=== PATIENT | male | born 1955 | race Two or more races ===

== ENCOUNTER 2017-04-04 13:00 | Emergency (ER) | payer MEDICARE, OTHER ==
[~2017-04-04] VITALS: Ht 172.7 cm; Wt 95.5 kg
[~2017-04-04 13:00] MED LIST: ASPI-1213 PO; BENZ0.5T6 PO; BISA10S PR; CLOZ100 PO; DIVA500T35 PO; DSS100 PO; FAMO20TA8 PO; HALOD100I IM; METO-408 PO; NIFE60TA81 PO; RISP4TAB16 PO
[2017-04-04] MEDS ORDERED: NIFE60TA71 PO (13:41)
[2017-04-04] MEDS ORDERED: FLUT1AER IH (13:41)
[2017-04-04] MEDS ORDERED: CLON.3 PO (13:41)
[2017-04-04] MEDS ORDERED: CARV25 PO (13:41)
[2017-04-04] MEDS ORDERED: LEVO50 PO (13:41)
[2017-04-04] MEDS ORDERED: GABA-531 PO (13:41)
[2017-04-04] MEDS ORDERED: HYDR-309 PO (13:41)
[2017-04-04] MEDS ORDERED: UMEC62.5 IH (13:41)
[2017-04-04] MEDS ORDERED: ACETAMINOPHEN 500 MG TABLET PO ONE (14:15)
[2017-04-04 15:33] LABS: BASOPHILS % (AUTO) 0.2 % (0.0-2.0); EOSINOPHILS % (AUTO) 0.3 % (1.0-6.0); HEMOGLOBIN 10.3 g/dL (13.5-17.5); LYMPHOCYTES # (AUTO) 1.1 K/uL (1.0-4.8); LYMPHOCYTES % (AUTO) 11.6 % (22.0-44.0); MEAN CORPUSCULAR HEMOGLOBIN 34.6 pg (26.0-34.0); MEAN CORPUSCULAR HGB CONC 34.3 G/dL (31.0-37.0); MEAN CORPUSCULAR VOLUME 101 fL (80-100); MONOCYTES # (AUTO) 0.6 K/uL (0.1-1.0); MONOCYTES % (AUTO) 6.6 % (2.0-9.0); NEUTROPHILS # (AUTO) 7.6 K/uL (1.8-7.7); NEUTROPHILS % (AUTO) 81.3 % (40.0-70.0); PLATELET COUNT (AUTO) 216 K/uL (150-450); RED BLOOD CELL COUNT(AUTO) 2.97 MIL/uL (4.50-5.90); RED CELL DISTRIBUTION WIDTH 14.9 % (11.5-14.5)
[2017-04-04 15:38] LABS: ANION GAP 16 mmol/L (8-16); CALCIUM, TOTAL 6.1 mg/dL (8.8-10.5); CARBON DIOXIDE 16 mmol/L (22-29); CHLORIDE 106 mmol/L (98-107); GLOMERULAR FILTR. RATE CALC 15 mL/min (>60); GLUCOSE,RANDOM 130 mg/dL (70-110); POTASSIUM 3.7 mmol/L (3.5-5.1); SODIUM SERUM 138 mmol/L (136-145); UREA NITROGEN, BLOOD 48 mg/dL (7-18)
[2017-04-04 15:44] LABS: ALANINE AMINOTRANSFERASE 15 U/L (12-78); ALBUMIN 1.9 g/dL (3.4-5.0); ALKALINE PHOSPHATASE 83 U/L (46-116); ASPARTATE AMINOTRANSFERASE 12 U/L (15-37); BILIRUBIN,TOTAL 0.2 mg/dL (0.1-1.0); TOTAL PROTEIN, SERUM 4.9 g/dL (6.4-8.2)
[2017-04-04 15:57] LABS: VALPROIC ACID 11 mcg/mL (50-100)
[2017-04-04] MEDS ORDERED: LORazepam 2 MG TABLET PO ONE (16:00)
[2017-04-04] MEDS ORDERED: HALOPERIDOL 5 MG TABLET PO ONE (16:00)
[2017-04-04 17:23] VITALS: BP 144/78
== END 2017-04-04 18:16 | disposition home or self-care (01) ==
LOC: EMS 13:02
DX: R45.1 Restlessness and agitation (principal); N28.9 Disorder of kidney and ureter, unspecified; R44.0 Auditory hallucinations; F91.1 Conduct disorder, childhood-onset type; I10 Essential (primary) hypertension; E03.9 Hypothyroidism, unspecified; F17.210 Nicotine dependence, cigarettes, uncomplicated; Z91.14 Patient's other noncompliance with medication regimen
CPT/HCPCS: 36415; 80053; 80164; 85025; 99284; G0480

== ENCOUNTER 2017-11-24 12:32 | Inpatient (IN) | payer MEDICARE, OTHER ==
[~2017-11-24] VITALS: Ht 180.3 cm; Wt 98.0 kg
[~2017-11-24 12:32] MED LIST changes: -ASPI-1213 PO; +BENZ0.5T44 PO; -BENZ0.5T6 PO; +CARV25 PO; +CLON.3 PO; +DIVA-54 PO; -DIVA500T35 PO; -FAMO20TA8 PO; +FLUT1AER IH; +GABA-531 PO; +HYDR-309 PO; +LEVO50 PO; -METO-408 PO; +NIFE60TA71 PO; -NIFE60TA81 PO; +UMEC62.5 IH
[2017-11-24 13:43] LABS: BASOPHILS % (AUTO) 0.9 % (0.0-2.0); EOSINOPHILS % (AUTO) 0.5 % (1.0-6.0); HEMATOCRIT 23.6 % (41-53); HEMOGLOBIN 7.8 g/dL (13.5-17.5); LYMPHOCYTES # (AUTO) 0.4 K/uL (1.0-4.8); MEAN CORPUSCULAR HEMOGLOBIN 31.7 pg (26.0-34.0); MEAN CORPUSCULAR HGB CONC 33.1 G/dL (31.0-37.0); MEAN CORPUSCULAR VOLUME 96 fL (80-100); MONOCYTES # (AUTO) 0.3 K/uL (0.1-1.0); MONOCYTES % (AUTO) 3.3 % (2.0-9.0); NEUTROPHILS # (AUTO) 7.9 K/uL (1.8-7.7); PLATELET COUNT (AUTO) 143 K/uL (150-450); RED BLOOD CELL COUNT(AUTO) 2.46 MIL/uL (4.50-5.90); RED CELL DISTRIBUTION WIDTH 19.1 % (11.5-14.5)
[2017-11-24 13:47] LABS: NEUTROPHILS % (AUTO) 90.3 % (40.0-70.0)
[2017-11-24 13:51] LABS: CREATININE 5.69 mg/dL (0.60-1.30); POTASSIUM 4.7 mmol/L (3.5-5.1)
[2017-11-24 13:55] LABS: PROTHROMBIN TIME 10.5 SEC (9.4-11.6)
[2017-11-24 14:16] LABS: ALBUMIN 2.2 g/dL (3.4-5.0); BILIRUBIN,TOTAL 0.3 mg/dL (0.1-1.0); CKMB RELATIVE INDEX 2.4 % (0.0-4.0); CREATINE KINASE MB 5.4 ng/mL (0-5); TOTAL PROTEIN, SERUM 5.4 g/dL (6.4-8.2)
[2017-11-24 14:24] LABS: CALCIUM, TOTAL 5.7 mg/dL (8.8-10.5)
[2017-11-24] MEDS ORDERED: CALCIUM GLUCONATE 0.465 MEQ/ML 10 ML VIAL ONE (14:28)
[2017-11-24 14:43] LABS: APPEARANCE,URINE CLEAR (CLEAR); BILIRUBIN,URINE NEGATIVE (NEGATIVE); GLUCOSE, URINE (UA) NEGATIVE (NEGATIVE); KETONES,URINE NEGATIVE (NEGATIVE); LEUKOCYTE ESTERASE ,URINE NEGATIVE (NEGATIVE); NITRATE,URINE NEGATIVE (NEGATIVE); OCCULT BLOOD,URINE TRACE (NEGATIVE); PH,URINE 5.5 (5.0-8.0); PROTEIN,URINE SEE CONFIRM (NEGATIVE); UROBILINOGEN,URINE 0.2 mg/dL (<=1.0)
[2017-11-24] MEDS ORDERED: CALCIUM GLUCONATE 100 MG/ML 10 ML IVP ONE ×2 (14:49→15:00)
[2017-11-24 14:51] LABS: BACTERIA,URINE Rare /HPF (None Seen); SQUAMOUS EPITHELIAL CELL,UR Few /LPF (None Seen); SULFOSALICYLIC ACID,URINE 2+ (Negative); WBC,URINE 0-2 /HPF (0-5)
[2017-11-24] MEDS: BUMETANIDE 0.25 MG/ML 4 ML VIAL IVP SCH ×2 (17:00→23:01)
[2017-11-24] MEDS ORDERED: HYDROCODONE/ACETAMINOPHEN 5-325 MG TABLET PO ONE (17:15)
[2017-11-24 20:00] VITALS: BP 177/100
[2017-11-24] MEDS ORDERED: NIFEdipine 60 MG ER TABLET PO ONE (21:00)
[2017-11-24] MEDS ORDERED: DOCUSATE SODIUM 100 MG CAPSULE PO PRN (22:45)
[2017-11-24] MEDS ORDERED: BISACODYL 10 MG RECTAL RECTAL SUPPOSITORY PR PRN (22:45)
[2017-11-25] VITALS (7 sets, daily range): BP systolic 118–184; BP diastolic 59–94
[2017-11-25] MEDS ORDERED: FLUTICASONE/VILANTEROL 100-25 MCG/INH INHALER [14] IH SCH ×2 (01:18→09:00)
[2017-11-25] MEDS: FLUTICASONE/VILANTEROL 100-25 MCG/INH INHALER [14] IH SCH (01:26)
[2017-11-25 05:28] LABS: BASOPHILS % (AUTO) 0.4 % (0.0-2.0); HEMATOCRIT 22.4 % (41-53); HEMOGLOBIN 7.5 g/dL (13.5-17.5); LYMPHOCYTES # (AUTO) 0.8 K/uL (1.0-4.8); MEAN CORPUSCULAR HGB CONC 33.6 G/dL (31.0-37.0); MEAN CORPUSCULAR VOLUME 95 fL (80-100); MONOCYTES # (AUTO) 0.8 K/uL (0.1-1.0); MONOCYTES % (AUTO) 8.5 % (2.0-9.0); NEUTROPHILS # (AUTO) 7.5 K/uL (1.8-7.7); NEUTROPHILS % (AUTO) 81.1 % (40.0-70.0); PLATELET COUNT (AUTO) 140 K/uL (150-450); RED BLOOD CELL COUNT(AUTO) 2.35 MIL/uL (4.50-5.90); RED CELL DISTRIBUTION WIDTH 18.7 % (11.5-14.5)
[2017-11-25 05:52] LABS: BILIRUBIN,TOTAL 0.3 mg/dL (0.1-1.0); CREATININE 5.77 mg/dL (0.60-1.30); MAGNESIUM 1.6 mg/dL (1.80-2.40); PHOSPHORUS 8.6 mg/dL (2.5-4.9); THYROID STIMULATING HORMONE 9.28 uIU/mL (0.36-3.74)
[2017-11-25] MEDS ORDERED: LEVOTHYROXINE SODIUM 50 MCG TABLET PO SCH (06:30)
[2017-11-25 06:37] LABS: % IRON SATURATION 17.3 % (30-44)
[2017-11-25] MEDS: GABAPENTIN 300 MG CAPSULE PO SCH ×3 (08:08→21:05)
[2017-11-25] MEDS: CARVEDILOL 25 MG TABLET PO SCH (08:08)
[2017-11-25] MEDS: BUMETANIDE 0.25 MG/ML 4 ML VIAL IVP SCH ×3 (08:08→23:44)
[2017-11-25] MEDS: EPOETIN ALFA 10,000 UNITS/ML VIAL SQ SCH (08:09)
[2017-11-25] MEDS: NIFEdipine 60 MG ER TABLET PO SCH ×2 (08:09→21:05)
[2017-11-25] MEDS: CALCIUM ACETATE 667 MG CAPSULE PO SCH ×2 (12:30→18:18)
[2017-11-25] MEDS: CHOLECALCIFEROL (VIT D3) 1,000 UNITS TABLET PO SCH (17:05)
[2017-11-25] MEDS ORDERED: SODIUM CHLORIDE 0.9% 100 ML ONE (17:08)
[2017-11-25] MEDS: SOD FERRIC GLUC COMPLX/SUCROSE 125 MG in SODIUM CHLORIDE 0.9% 100 ML IV SCH (18:17)
[2017-11-25] MEDS: SODIUM BICARBONATE 650 MG TABLET PO SCH (18:18)
[2017-11-25] MEDS: HYDROCODONE/ACETAMINOPHEN 5-325 MG TABLET PO PRN (18:38)
[2017-11-25] MEDS: IPRATROPIUM BROMIDE 0.5 MG/2.5 ML NEB SOLUTION NEB PRN (18:58)
[2017-11-25] MEDS: ALBUTEROL SULFATE 2.5 MG/0.5 ML NEB SOLUTION NEB PRN (18:58)
[2017-11-25] MEDS: BENZTROPINE MESYLATE 0.5 MG TABLET PO SCH (21:05)
[2017-11-25] MEDS: CloZAPine 100 MG TABLET PO SCH (21:05)
[2017-11-25 21:17] LABS: CREATININE,URINE 30.1 mg/dL (30.0-125.0)
[2017-11-25 21:18] LABS: CREATININE,SERUM FOR CRCL 5.77 mg/dL (0.60-1.30)
[2017-11-26] VITALS (8 sets, daily range): BP systolic 113–137; BP diastolic 59–74
[2017-11-26 05:22] LABS: IGM (IMMUNOFIXATION) 42 mg/dL (20-172)
[2017-11-26 06:22] LABS: CREATININE 6.11 mg/dL (0.60-1.30); MAGNESIUM 1.6 mg/dL (1.80-2.40); POTASSIUM 4.2 mmol/L (3.5-5.1)
[2017-11-26] MEDS: LEVOTHYROXINE SODIUM 75 MCG TABLET PO SCH (06:30)
[2017-11-26 06:49] LABS: PHOSPHORUS 9.4 mg/dL (2.5-4.9)
[2017-11-26 06:50] LABS: CALCIUM, TOTAL 5.8 mg/dL (8.8-10.5)
[2017-11-26 07:15] LABS: BASOPHILS % (AUTO) 0.5 % (0.0-2.0); EOSINOPHILS % (AUTO) 2.1 % (1.0-6.0); LYMPHOCYTES # (AUTO) 0.9 K/uL (1.0-4.8); LYMPHOCYTES % (AUTO) 13.1 % (22.0-44.0); MEAN CORPUSCULAR HEMOGLOBIN 31.6 pg (26.0-34.0); MEAN CORPUSCULAR HGB CONC 33.1 G/dL (31.0-37.0); MEAN CORPUSCULAR VOLUME 95 fL (80-100); MONOCYTES # (AUTO) 0.8 K/uL (0.1-1.0); MONOCYTES % (AUTO) 10.8 % (2.0-9.0); NEUTROPHILS # (AUTO) 5.3 K/uL (1.8-7.7); NEUTROPHILS % (AUTO) 73.5 % (40.0-70.0); PLATELET COUNT (AUTO) 120 K/uL (150-450); RED CELL DISTRIBUTION WIDTH 18.7 % (11.5-14.5)
[2017-11-26] MEDS ORDERED: CALCIUM GLUCONATE 100 MG/ML 10 ML IVP ONE ×3 (07:15→13:15)
[2017-11-26 07:26] LABS: HEMOGLOBIN 6.6 g/dL (13.5-17.5)
[2017-11-26] MEDS: CALCIUM ACETATE 667 MG CAPSULE PO SCH ×3 (08:00→17:32)
[2017-11-26] MEDS: CHOLECALCIFEROL (VIT D3) 1,000 UNITS TABLET PO SCH (09:00)
[2017-11-26] MEDS: NIFEdipine 60 MG ER TABLET PO SCH ×2 (09:00→20:22)
[2017-11-26] MEDS: CARVEDILOL 25 MG TABLET PO SCH (09:00)
[2017-11-26] MEDS: BENZTROPINE MESYLATE 0.5 MG TABLET PO SCH ×2 (09:00→20:23)
[2017-11-26] MEDS: GABAPENTIN 300 MG CAPSULE PO SCH ×3 (09:00→20:22)
[2017-11-26] MEDS: SODIUM BICARBONATE 650 MG TABLET PO SCH (09:00)
[2017-11-26] MEDS: FLUTICASONE/VILANTEROL 100-25 MCG/INH INHALER [14] IH SCH (09:00)
[2017-11-26] MEDS: BUMETANIDE 0.25 MG/ML 4 ML VIAL IVP SCH ×2 (09:27→17:32)
[2017-11-26 12:12] LABS: ABG A-A DIFF O2 591.2 mmHg (10-20.0); ABG BASE EXCESS -13.5 mmol/L (-2.0-3.0); ABG CARBOXYHEMOGLOBIN 0.3 % (0.0-1.5); ABG HCO3 14.3 mmol/L (22.0-26.0); ABG METHEMOGLOBIN 0.3 % (0.0-1.5); ABG OXYGEN CONTENT 9.9 mL/dL (15.0-23.0); ABG OXYGEN SATURATION 89.9 % (95.0-98.0); ABG OXYHEMOGLOBIN 89.4 % (94.0-100.0); ABG PCO2 42 mmHg (35-45); PO2, ARTERIAL BG 80.2 mmHg (79.0-87.0); SOURCE, BLOOD GAS ARTERIAL; TEMPERATURE, FAHRENHEIT, BG 98.6 FAHREN (96.0-98.6)
[2017-11-26 12:13] LABS: ABG PH 7.173 (7.35-7.450); ABG TOTAL HEMOGLOBIN 7.8 G/dL (12.0-18.0); O2 DEVICE,BLOOD GAS VENTILATOR (ROOM AIR); SITE, BLOOD GAS RT RADIAL; VT, ABG 550 ml
[2017-11-26 12:14] LABS: PEEP,BG 5 cm H2O
[2017-11-26] MEDS ORDERED: PROPOFOL 1000 MG/ISO-OSM 100 ML IV ONE (13:24)
[2017-11-26] MEDS ORDERED: HEPARIN SODIUM,PORCINE 1,000 UNITS/ML VIAL ONE (14:10)
[2017-11-26] MEDS ORDERED: HEPARIN SODIUM,PORCINE 1,000 UNITS/ML VIAL IVP PRN ×2 (14:15→14:30)
[2017-11-26] MEDS ORDERED: SODIUM CHLORIDE 0.9% 250 ML IV ONE ×2 (15:03→18:12)
[2017-11-26 15:29] LABS: EOSINOPHILS % (AUTO) 0.8 % (1.0-6.0); LYMPHOCYTES # (AUTO) 0.5 K/uL (1.0-4.8); MONOCYTES # (AUTO) 0.3 K/uL (0.1-1.0); NEUTROPHILS # (AUTO) 2.9 K/uL (1.8-7.7)
[2017-11-26 15:43] LABS: CALCIUM, TOTAL 6.4 mg/dL (8.8-10.5); CREATININE 5.52 mg/dL (0.60-1.30); POTASSIUM 3.5 mmol/L (3.5-5.1)
[2017-11-26] MEDS ORDERED: ALBUMIN HUMAN 25%-12.5GM/50ML IV BOTTLE IV ONE (15:45)
[2017-11-26] MEDS ORDERED: HEPARIN SODIUM,PORCINE 1,000 UNITS/ML VIAL IVP ONE ×2 (15:45)
[2017-11-26 15:49] LABS: ALBUMIN 1.6 g/dL (3.4-5.0); BILIRUBIN,TOTAL 0.2 mg/dL (0.1-1.0); TOTAL PROTEIN, SERUM 4.1 g/dL (6.4-8.2)
[2017-11-26 16:02] LABS: BASOPHILS % (AUTO) 0.6 % (0.0-2.0); LYMPHOCYTES % (AUTO) 14.3 % (22.0-44.0); MEAN CORPUSCULAR HEMOGLOBIN 31.5 pg (26.0-34.0); MEAN CORPUSCULAR HGB CONC 33.2 G/dL (31.0-37.0); MEAN CORPUSCULAR VOLUME 95 fL (80-100); MONOCYTES % (AUTO) 6.7 % (2.0-9.0); NEUTROPHILS % (AUTO) 77.6 % (40.0-70.0); PLATELET COUNT (AUTO) 106 K/uL (150-450); RED BLOOD CELL COUNT(AUTO) 2.02 MIL/uL (4.50-5.90); RED CELL DISTRIBUTION WIDTH 18.4 % (11.5-14.5)
[2017-11-26 16:07] LABS: HEMATOCRIT 19.1 % (41-53); HEMOGLOBIN 6.4 g/dL (13.5-17.5)
[2017-11-26] MEDS: PROPOFOL 1000 MG/ISO-OSM 100 ML IV PRN ×2 (16:41→20:22)
[2017-11-26] MEDS: SOD FERRIC GLUC COMPLX/SUCROSE 125 MG in SODIUM CHLORIDE 0.9% 100 ML IV SCH (18:16)
[2017-11-26 18:50] LABS: CREATINE KINASE, TOTAL 101 U/L (39-308)
[2017-11-26] MEDS: CloZAPine 100 MG TABLET PO SCH (20:22)
[2017-11-26] MEDS: CloNIDine HCL 0.1 MG TABLET PO PRN (20:22)
[2017-11-26 21:03] LABS: ABG A-A DIFF O2 604.6 mmHg (10-20.0); ABG BASE EXCESS -4.4 mmol/L (-2.0-3.0); ABG CARBOXYHEMOGLOBIN 0.1 % (0.0-1.5); ABG METHEMOGLOBIN 0.3 % (0.0-1.5); ABG OXYGEN CONTENT 12.4 mL/dL (15.0-23.0); ABG OXYGEN SATURATION 90.9 % (95.0-98.0); ABG OXYHEMOGLOBIN 90.5 % (94.0-100.0); ABG PCO2 40 mmHg (35-45); ABG PH 7.346 (7.35-7.450); ABG TOTAL HEMOGLOBIN 9.7 G/dL (12.0-18.0); PO2, ARTERIAL BG 68.6 mmHg (79.0-87.0); SOURCE, BLOOD GAS ARTERIAL; TEMPERATURE, FAHRENHEIT, BG 98.6 FAHREN (96.0-98.6)
[2017-11-26 21:05] LABS: O2 DEVICE,BLOOD GAS VENTILATOR (ROOM AIR); PEEP,BG 5 cm H2O; SITE, BLOOD GAS RT RADIAL; VT, ABG 550 ml
[2017-11-26] MEDS: CALCIUM OYSTER SHELL 500 MG TABLET PO SCH (23:03)
[2017-11-27] VITALS: BP 124/67
[2017-11-27] MEDS: BUMETANIDE 0.25 MG/ML 4 ML VIAL IVP SCH ×3 (00:23→16:17)
[2017-11-27] MEDS: PROPOFOL 1000 MG/ISO-OSM 100 ML IV PRN ×6 (00:24→20:25)
[2017-11-27 04:00] VITALS: BP 119/56
[2017-11-27 05:14] LABS: ANION GAP 14 mmol/L (8-16); CARBON DIOXIDE 24 mmol/L (22-29); CHLORIDE 106 mmol/L (98-107); CREATINE KINASE, TOTAL 60 U/L (39-308); GLOMERULAR FILTR. RATE CALC 12 mL/min (>60); GLUCOSE,RANDOM 82 mg/dL (70-110); PHOSPHORUS 7.2 mg/dL (2.5-4.9); SODIUM SERUM 144 mmol/L (136-145); THYROID STIMULATING HORMONE 6.16 uIU/mL (0.36-3.74); UREA NITROGEN, BLOOD 58 mg/dL (7-18)
[2017-11-27 05:16] LABS: BASOPHILS % (AUTO) 0.2 % (0.0-2.0); EOSINOPHILS % (AUTO) 1.3 % (1.0-6.0); HEMATOCRIT 26.2 % (41-53); HEMOGLOBIN 9.1 g/dL (13.5-17.5); LYMPHOCYTES # (AUTO) 0.4 K/uL (1.0-4.8); LYMPHOCYTES % (AUTO) 4.2 % (22.0-44.0); MEAN CORPUSCULAR HEMOGLOBIN 32.3 pg (26.0-34.0); MEAN CORPUSCULAR HGB CONC 34.6 G/dL (31.0-37.0); MEAN CORPUSCULAR VOLUME 94 fL (80-100); MONOCYTES % (AUTO) 9.6 % (2.0-9.0); NEUTROPHILS # (AUTO) 8.5 K/uL (1.8-7.7); NEUTROPHILS % (AUTO) 84.7 % (40.0-70.0); PLATELET COUNT (AUTO) 113 K/uL (150-450); RED BLOOD CELL COUNT(AUTO) 2.81 MIL/uL (4.50-5.90); RED CELL DISTRIBUTION WIDTH 17.5 % (11.5-14.5)
[2017-11-27] MEDS: LEVOTHYROXINE SODIUM 75 MCG TABLET PO SCH (06:03)
[2017-11-27 06:43] LABS: B-TYPE NATRIURETIC PEPTIDE 977 pg/mL (0-100)
[2017-11-27 08:00] VITALS: BP 114/68
[2017-11-27] MEDS: CALCIUM ACETATE 667 MG CAPSULE PO SCH ×2 (08:34→12:15)
[2017-11-27] MEDS: GABAPENTIN 300 MG CAPSULE PO SCH ×3 (08:34→20:26)
[2017-11-27] MEDS: SODIUM BICARBONATE 650 MG TABLET PO SCH (08:35)
[2017-11-27] MEDS: CHOLECALCIFEROL (VIT D3) 1,000 UNITS TABLET PO SCH (08:38)
[2017-11-27] MEDS: BENZTROPINE MESYLATE 0.5 MG TABLET PO SCH ×2 (08:39→20:27)
[2017-11-27] MEDS: FLUTICASONE/VILANTEROL 100-25 MCG/INH INHALER [14] IH SCH (09:00)
[2017-11-27] MEDS: NIFEdipine 60 MG ER TABLET PO SCH ×3 (09:00→20:29)
[2017-11-27] MEDS: CARVEDILOL 25 MG TABLET PO SCH (10:43)
[2017-11-27] MEDS: PIPERACILLIN SODIUM/TAZOBACTAM 2.25 GM in DEXTROSE 5%-WATER 50 ML IV SCH ×2 (10:45→17:19)
[2017-11-27] MEDS: EPOETIN ALFA 10,000 UNITS/ML VIAL SQ SCH (10:45)
[2017-11-27 11:14] LABS: GLUCOMETER DEV NAME(LOC) 5N 2S; GLUCOSE,POINT OF CARE 118 MG/DL (70-110)
[2017-11-27 11:52] LABS: CREATINE KINASE, TOTAL 51 U/L (39-308)
[2017-11-27 12:00] VITALS: BP 164/80
[2017-11-27] MEDS ORDERED: SODIUM CHLORIDE 0.9% 500 ML IV ONE (13:43)
[2017-11-27 16:00] VITALS: BP 183/56
[2017-11-27 16:05] LABS: ABG A-A DIFF O2 553.4 mmHg (10-20.0); ABG BASE EXCESS 0.2 mmol/L (-2.0-3.0); ABG CARBOXYHEMOGLOBIN 0.3 % (0.0-1.5); ABG HCO3 24.8 mmol/L (22.0-26.0); ABG METHEMOGLOBIN 0.3 % (0.0-1.5); ABG OXYGEN CONTENT 12.5 mL/dL (15.0-23.0); ABG OXYGEN SATURATION 96.1 % (95.0-98.0); ABG OXYHEMOGLOBIN 95.5 % (94.0-100.0); ABG PCO2 35 mmHg (35-45); ABG PH 7.454 (7.35-7.450); ABG TOTAL HEMOGLOBIN 9.1 G/dL (12.0-18.0); O2 DEVICE,BLOOD GAS VENTILATOR (ROOM AIR); PEEP,BG 5 cm H2O; PO2, ARTERIAL BG 125.9 mmHg (79.0-87.0); SITE, BLOOD GAS ARTERIAL LINE; SOURCE, BLOOD GAS ARTERIAL; TEMPERATURE, FAHRENHEIT, BG 97.5 FAHREN (96.0-98.6); VT, ABG 550 ml
[2017-11-27] MEDS ORDERED: NITROGLYCERIN 50 MG/D5% WATER 250 ML IV PRN (16:58)
[2017-11-27] MEDS: AMINO ACIDS/PROTEIN HYDROLYS 30 ML TUBE PO SCH (17:17)
[2017-11-27] MEDS: HydrALAZINE HCL 25 MG TABLET PO SCH ×3 (17:17→20:26)
[2017-11-27] MEDS: SOD FERRIC GLUC COMPLX/SUCROSE 125 MG in SODIUM CHLORIDE 0.9% 100 ML IV SCH (17:19)
[2017-11-27] MEDS: FentaNYL CITRATE PF 500 MCG in DEXTROSE 5%-WATER 90 ML IV PRN (17:35)
[2017-11-27] MEDS ORDERED: HEPARIN SODIUM,PORCINE 1,000 UNITS/ML VIAL IVP ONE ×2 (18:12→18:19)
[2017-11-27] MEDS ORDERED: ETOMIDATE 2 MG/ML 10 ML VIAL IV ONE (18:14)
[2017-11-27] MEDS ORDERED: VECURONIUM BROMIDE 10 MG/VIAL IV ONE (18:14)
[2017-11-27] MEDS ORDERED: ALBUMIN HUMAN 25%-12.5GM/50ML IV BOTTLE IV ONE (18:19)
[2017-11-27 20:00] VITALS: BP 190/55
[2017-11-27] MEDS ORDERED: SODIUM CHLORIDE 0.9% 250 ML IV ONE (20:23)
[2017-11-27] MEDS: CALCIUM OYSTER SHELL 500 MG TABLET PO SCH (20:26)
[2017-11-27] MEDS: CloZAPine 100 MG TABLET PO SCH (20:26)
[2017-11-28] VITALS: BP 156/55
[2017-11-28] MEDS ORDERED: SODIUM CHLORIDE 0.9% 500 ML IV ONE (01:04)
[2017-11-28] MEDS: PIPERACILLIN SODIUM/TAZOBACTAM 2.25 GM in DEXTROSE 5%-WATER 50 ML IV SCH ×3 (01:10→17:18)
[2017-11-28] MEDS: PROPOFOL 1000 MG/ISO-OSM 100 ML IV PRN ×4 (01:11→20:45)
[2017-11-28] MEDS: BUMETANIDE 0.25 MG/ML 4 ML VIAL IVP SCH ×3 (01:14→17:18)
[2017-11-28 04:00] VITALS: BP 169/58
[2017-11-28] MEDS: FentaNYL CITRATE PF 500 MCG in DEXTROSE 5%-WATER 90 ML IV PRN (04:07)
[2017-11-28 05:04] LABS: CALCIUM, TOTAL 7.5 mg/dL (8.8-10.5); CREATININE 3.67 mg/dL (0.60-1.30); MAGNESIUM 1.6 mg/dL (1.80-2.40); PHOSPHORUS 5.6 mg/dL (2.5-4.9); POTASSIUM 3.3 mmol/L (3.5-5.1)
[2017-11-28 05:07] LABS: BASOPHILS % (AUTO) 0.4 % (0.0-2.0); HEMATOCRIT 28.7 % (41-53); LYMPHOCYTES # (AUTO) 0.8 K/uL (1.0-4.8); LYMPHOCYTES % (AUTO) 8.2 % (22.0-44.0); MEAN CORPUSCULAR HEMOGLOBIN 32.3 pg (26.0-34.0); MEAN CORPUSCULAR HGB CONC 34.7 G/dL (31.0-37.0); MEAN CORPUSCULAR VOLUME 93 fL (80-100); MONOCYTES % (AUTO) 10.5 % (2.0-9.0); NEUTROPHILS # (AUTO) 7.3 K/uL (1.8-7.7); NEUTROPHILS % (AUTO) 78.9 % (40.0-70.0); PLATELET COUNT (AUTO) 122 K/uL (150-450); RED BLOOD CELL COUNT(AUTO) 3.08 MIL/uL (4.50-5.90); RED CELL DISTRIBUTION WIDTH 17.7 % (11.5-14.5)
[2017-11-28] MEDS: LEVOTHYROXINE SODIUM 75 MCG TABLET PO SCH (06:47)
[2017-11-28 08:00] VITALS: BP 172/63
[2017-11-28] MEDS: HydrALAZINE HCL 25 MG TABLET PO SCH ×4 (08:30→21:00)
[2017-11-28] MEDS: NIFEdipine 60 MG ER TABLET PO SCH ×2 (08:30→20:49)
[2017-11-28] MEDS: GABAPENTIN 300 MG CAPSULE PO SCH ×3 (08:30→20:45)
[2017-11-28] MEDS: BENZTROPINE MESYLATE 0.5 MG TABLET PO SCH ×2 (08:30→20:46)
[2017-11-28] MEDS: CARVEDILOL 25 MG TABLET PO SCH (08:30)
[2017-11-28] MEDS: AMINO ACIDS/PROTEIN HYDROLYS 30 ML TUBE PO SCH ×4 (08:31→17:18)
[2017-11-28] MEDS: FLUTICASONE/VILANTEROL 100-25 MCG/INH INHALER [14] IH SCH (08:31)
[2017-11-28] MEDS: CHOLECALCIFEROL (VIT D3) 1,000 UNITS TABLET PO SCH (08:31)
[2017-11-28] MEDS: IPRATROPIUM BROMIDE 0.5 MG/2.5 ML NEB SOLUTION NEB PRN ×2 (09:00→21:17)
[2017-11-28] MEDS: ALBUTEROL SULFATE 2.5 MG/0.5 ML NEB SOLUTION NEB PRN ×2 (09:00→21:17)
[2017-11-28 10:44] LABS: ABG A-A DIFF O2 546.2 mmHg (10-20.0); ABG BASE EXCESS 1.7 mmol/L (-2.0-3.0); ABG CARBOXYHEMOGLOBIN 0.3 % (0.0-1.5); ABG HCO3 25.8 mmol/L (22.0-26.0); ABG METHEMOGLOBIN 0.3 % (0.0-1.5); ABG OXYGEN CONTENT 12.6 mL/dL (15.0-23.0); ABG OXYHEMOGLOBIN 89.5 % (94.0-100.0); ABG PCO2 37 mmHg (35-45); ABG PH 7.457 (7.35-7.450); PO2, ARTERIAL BG 58.9 mmHg (79.0-87.0); SOURCE, BLOOD GAS ARTERIAL; TEMPERATURE, FAHRENHEIT, BG 97.5 FAHREN (96.0-98.6)
[2017-11-28 10:45] LABS: O2 DEVICE,BLOOD GAS VENTILATOR (ROOM AIR); PEEP,BG 5 cm H2O; SITE, BLOOD GAS ARTERIAL LINE; VT, ABG 550 ml
[2017-11-28 12:00] VITALS: BP 121/50
[2017-11-28] MEDS ORDERED: MAGNESIUM SULFATE 2 GM/WATER 50 ML IV ONE (12:00)
[2017-11-28] MEDS ORDERED: BISACODYL 10 MG RECTAL RECTAL SUPPOSITORY PR PRN (12:00)
[2017-11-28] MEDS ORDERED: NOREPINEPHRINE 4 MG/D5%-WATER 250 ML IV ONE (13:34)
[2017-11-28] MEDS: NOREPINEPHRINE 4 MG/D5%-WATER 250 ML IV PRN (13:40)
[2017-11-28 14:45] LABS: ABG A-A DIFF O2 550.2 mmHg (10-20.0); ABG CARBOXYHEMOGLOBIN 0.3 % (0.0-1.5); ABG HCO3 25.3 mmol/L (22.0-26.0); ABG METHEMOGLOBIN 0.3 % (0.0-1.5); ABG OXYGEN CONTENT 13.9 mL/dL (15.0-23.0); ABG OXYGEN SATURATION 92.3 % (95.0-98.0); ABG OXYHEMOGLOBIN 91.7 % (94.0-100.0); ABG PCO2 35 mmHg (35-45); ABG PH 7.468 (7.35-7.450); ABG TOTAL HEMOGLOBIN 10.7 G/dL (12.0-18.0); O2 DEVICE,BLOOD GAS VENTILATOR (ROOM AIR); PEEP,BG 5 cm H2O; PO2, ARTERIAL BG 60.9 mmHg (79.0-87.0); SITE, BLOOD GAS ARTERIAL LINE; SOURCE, BLOOD GAS ARTERIAL; TEMPERATURE, FAHRENHEIT, BG 94.5 FAHREN (96.0-98.6); VT, ABG 550 ml
[2017-11-28 16:11] VITALS: BP 114/52
[2017-11-28] MEDS ORDERED: HEPARIN SODIUM,PORCINE 1,000 UNITS/ML VIAL IVP ONE (16:45)
[2017-11-28] MEDS: SOD FERRIC GLUC COMPLX/SUCROSE 125 MG in SODIUM CHLORIDE 0.9% 100 ML IV SCH (17:18)
[2017-11-28] MEDS ORDERED: LIDOCAINE HCL 4% 50 ML SOLUTION TP ONE (17:45)
[2017-11-28] MEDS ORDERED: LIDOCAINE HCL 2% 30 ML JELLY TP ONE (17:45)
[2017-11-28] MEDS ORDERED: ACETYLCYSTEINE 10% 100 MG/ML 30 ML ORAL SOLUTION PO ONE (17:45)
[2017-11-28 20:00] VITALS: BP 145/55
[2017-11-28] MEDS: CALCIUM OYSTER SHELL 500 MG TABLET PO SCH (20:46)
[2017-11-28] MEDS: CloZAPine 100 MG TABLET PO SCH (20:46)
[2017-11-28] MEDS: ACETYLCYSTEINE 20% 200 MG/ML 4 ML NEB SOLUTION NEB SCH (21:17)
[2017-11-29] VITALS: BP 117/48
[2017-11-29] MEDS: BUMETANIDE 0.25 MG/ML 4 ML VIAL IVP SCH ×4 (00:16→23:33)
[2017-11-29] MEDS: PIPERACILLIN SODIUM/TAZOBACTAM 2.25 GM in DEXTROSE 5%-WATER 50 ML IV SCH ×3 (02:31→17:24)
[2017-11-29] MEDS: PROPOFOL 1000 MG/ISO-OSM 100 ML IV PRN ×5 (02:40→17:52)
[2017-11-29 04:00] VITALS: BP 125/48
[2017-11-29 04:39] LABS: CALCIUM, TOTAL 7.3 mg/dL (8.8-10.5); CREATININE 2.95 mg/dL (0.60-1.30); MAGNESIUM 1.9 mg/dL (1.80-2.40); PHOSPHORUS 4.6 mg/dL (2.5-4.9); POTASSIUM 3.4 mmol/L (3.5-5.1)
[2017-11-29] MEDS: LEVOTHYROXINE SODIUM 75 MCG TABLET PO SCH (06:12)
[2017-11-29 06:47] LABS: BASOPHILS % (AUTO) 0.3 % (0.0-2.0); EOSINOPHILS % (AUTO) 1.8 % (1.0-6.0); HEMATOCRIT 27.4 % (41-53); HEMOGLOBIN 9.6 g/dL (13.5-17.5); LYMPHOCYTES # (AUTO) 0.8 K/uL (1.0-4.8); LYMPHOCYTES % (AUTO) 7.7 % (22.0-44.0); MEAN CORPUSCULAR HEMOGLOBIN 32.5 pg (26.0-34.0); MEAN CORPUSCULAR VOLUME 93 fL (80-100); MONOCYTES # (AUTO) 1.3 K/uL (0.1-1.0); MONOCYTES % (AUTO) 11.7 % (2.0-9.0); NEUTROPHILS # (AUTO) 8.5 K/uL (1.8-7.7); NEUTROPHILS % (AUTO) 78.5 % (40.0-70.0); PLATELET COUNT (AUTO) 124 K/uL (150-450); RED BLOOD CELL COUNT(AUTO) 2.95 MIL/uL (4.50-5.90); RED CELL DISTRIBUTION WIDTH 17.8 % (11.5-14.5)
[2017-11-29] MEDS: IPRATROPIUM BROMIDE 0.5 MG/2.5 ML NEB SOLUTION NEB PRN ×3 (07:53→21:22)
[2017-11-29] MEDS: ACETYLCYSTEINE 20% 200 MG/ML 4 ML NEB SOLUTION NEB SCH ×3 (07:53→21:22)
[2017-11-29] MEDS: ALBUTEROL SULFATE 2.5 MG/0.5 ML NEB SOLUTION NEB PRN ×3 (07:53→21:22)
[2017-11-29 08:00] VITALS: BP 125/51
[2017-11-29] MEDS: GABAPENTIN 300 MG CAPSULE PO SCH ×3 (08:37→20:33)
[2017-11-29] MEDS: NIFEdipine 60 MG ER TABLET PO SCH ×2 (08:37→09:00)
[2017-11-29] MEDS: DOCUSATE SODIUM 100 MG CAPSULE PO SCH (08:37)
[2017-11-29] MEDS: CHOLECALCIFEROL (VIT D3) 1,000 UNITS TABLET PO SCH (08:39)
[2017-11-29] MEDS: AMINO ACIDS/PROTEIN HYDROLYS 30 ML TUBE PO SCH ×3 (08:56→17:24)
[2017-11-29] MEDS: HydrALAZINE HCL 25 MG TABLET PO SCH ×4 (08:56→21:00)
[2017-11-29] MEDS: FLUTICASONE/VILANTEROL 100-25 MCG/INH INHALER [14] IH SCH (09:00)
[2017-11-29 09:23] LABS: ABG A-A DIFF O2 235.1 mmHg (10-20.0); ABG BASE EXCESS 0.1 mmol/L (-2.0-3.0); ABG CARBOXYHEMOGLOBIN 0.3 % (0.0-1.5); ABG HCO3 24.7 mmol/L (22.0-26.0); ABG METHEMOGLOBIN 0.3 % (0.0-1.5); ABG OXYGEN CONTENT 15.2 mL/dL (15.0-23.0); ABG OXYGEN SATURATION 93.6 % (95.0-98.0); ABG PCO2 38 mmHg (35-45); ABG PH 7.431 (7.35-7.450); ABG TOTAL HEMOGLOBIN 11.6 G/dL (12.0-18.0); PO2, ARTERIAL BG 79.2 mmHg (79.0-87.0); SOURCE, BLOOD GAS ARTERIAL; TEMPERATURE, FAHRENHEIT, BG 98.6 FAHREN (96.0-98.6)
[2017-11-29 09:26] LABS: O2 DEVICE,BLOOD GAS VENTILATOR (ROOM AIR); PEEP,BG 5 cm H2O; SITE, BLOOD GAS ARTERIAL LINE; VT, ABG 550 ml
[2017-11-29] MEDS ORDERED: POTASSIUM CHLORIDE 10% 40 MEQ/30 ML LIQUID UDCUP NG ONE ×2 (10:00→19:15)
[2017-11-29] MEDS: BENZTROPINE MESYLATE 0.5 MG TABLET PO SCH ×2 (10:09→20:33)
[2017-11-29] MEDS: EPOETIN ALFA 10,000 UNITS/ML VIAL SQ SCH (10:09)
[2017-11-29] MEDS ORDERED: SODIUM CHLORIDE 0.9% 250 ML IV ONE (10:24)
[2017-11-29 12:00] VITALS: BP 163/53
[2017-11-29] MEDS ORDERED: METOLAZONE 5 MG TABLET PO ONE (12:30)
[2017-11-29] MEDS ORDERED: AmLODIPine BESYLATE 5 MG TABLET PO SCH (13:15)
[2017-11-29] MEDS: CALCITRIOL 0.25 MCG CAPSULE PO SCH (13:23)
[2017-11-29 16:00] VITALS: BP 170/53
[2017-11-29] MEDS ORDERED: AmLODIPine BESYLATE 5 MG TABLET PO ONE (16:00)
[2017-11-29] MEDS: SOD FERRIC GLUC COMPLX/SUCROSE 125 MG in SODIUM CHLORIDE 0.9% 100 ML IV SCH (17:24)
[2017-11-29 17:26] LABS: CALCIUM, TOTAL 7.3 mg/dL (8.8-10.5); CREATININE 3.43 mg/dL (0.60-1.30); MAGNESIUM 1.9 mg/dL (1.80-2.40); PHOSPHORUS 4.9 mg/dL (2.5-4.9); POTASSIUM 3.3 mmol/L (3.5-5.1)
[2017-11-29 20:00] VITALS: BP 133/48
[2017-11-29] MEDS: CloZAPine 100 MG TABLET PO SCH (20:33)
[2017-11-29] MEDS: CALCIUM OYSTER SHELL 500 MG TABLET PO SCH (20:33)
[2017-11-30] VITALS: BP 143/56
[2017-11-30] MEDS: PROPOFOL 1000 MG/ISO-OSM 100 ML IV PRN ×4 (00:59→17:11)
[2017-11-30] MEDS: PIPERACILLIN SODIUM/TAZOBACTAM 2.25 GM in DEXTROSE 5%-WATER 50 ML IV SCH ×3 (02:26→17:10)
[2017-11-30 04:00] VITALS: BP 164/61
[2017-11-30 05:14] LABS: BASOPHILS % (AUTO) 0.6 % (0.0-2.0); EOSINOPHILS % (AUTO) 3.4 % (1.0-6.0); HEMATOCRIT 28.6 % (41-53); HEMOGLOBIN 9.7 g/dL (13.5-17.5); LYMPHOCYTES # (AUTO) 0.8 K/uL (1.0-4.8); LYMPHOCYTES % (AUTO) 8.7 % (22.0-44.0); MEAN CORPUSCULAR HEMOGLOBIN 31.9 pg (26.0-34.0); MEAN CORPUSCULAR VOLUME 94 fL (80-100); MONOCYTES % (AUTO) 11.1 % (2.0-9.0); NEUTROPHILS # (AUTO) 7.1 K/uL (1.8-7.7); NEUTROPHILS % (AUTO) 76.2 % (40.0-70.0); PLATELET COUNT (AUTO) 142 K/uL (150-450); RED BLOOD CELL COUNT(AUTO) 3.05 MIL/uL (4.50-5.90); RED CELL DISTRIBUTION WIDTH 18.4 % (11.5-14.5)
[2017-11-30 05:28] LABS: CALCIUM, TOTAL 7.6 mg/dL (8.8-10.5); CREATININE 3.66 mg/dL (0.60-1.30); PHOSPHORUS 5.1 mg/dL (2.5-4.9); POTASSIUM 3.2 mmol/L (3.5-5.1)
[2017-11-30] MEDS: LEVOTHYROXINE SODIUM 75 MCG TABLET PO SCH (06:26)
[2017-11-30 08:00] VITALS: BP 175/63
[2017-11-30] MEDS: ALBUTEROL SULFATE 2.5 MG/0.5 ML NEB SOLUTION NEB PRN ×3 (08:07→20:42)
[2017-11-30] MEDS: IPRATROPIUM BROMIDE 0.5 MG/2.5 ML NEB SOLUTION NEB PRN ×3 (08:07→20:41)
[2017-11-30] MEDS: ACETYLCYSTEINE 20% 200 MG/ML 4 ML NEB SOLUTION NEB SCH ×3 (08:07→20:41)
[2017-11-30] MEDS: AmLODIPine BESYLATE 10 MG TABLET PO SCH (09:00)
[2017-11-30] MEDS: FLUTICASONE/VILANTEROL 100-25 MCG/INH INHALER [14] IH SCH (09:00)
[2017-11-30] MEDS: HydrALAZINE HCL 25 MG TABLET PO SCH ×4 (09:00→20:12)
[2017-11-30] MEDS: BENZTROPINE MESYLATE 0.5 MG TABLET PO SCH ×2 (09:12→20:12)
[2017-11-30] MEDS: BUMETANIDE 0.25 MG/ML 4 ML VIAL IVP SCH ×3 (09:12→23:35)
[2017-11-30] MEDS: AMINO ACIDS/PROTEIN HYDROLYS 30 ML TUBE PO SCH ×3 (09:12→17:11)
[2017-11-30] MEDS: GABAPENTIN 300 MG CAPSULE PO SCH ×3 (09:13→20:12)
[2017-11-30] MEDS: DOCUSATE SODIUM 100 MG CAPSULE PO SCH (09:13)
[2017-11-30] MEDS: CHOLECALCIFEROL (VIT D3) 1,000 UNITS TABLET PO SCH (09:13)
[2017-11-30] MEDS: CALCITRIOL 0.25 MCG CAPSULE PO SCH (09:14)
[2017-11-30 09:36] LABS: ABG A-A DIFF O2 220.2 mmHg (10-20.0); ABG BASE EXCESS -1.8 mmol/L (-2.0-3.0); ABG CARBOXYHEMOGLOBIN 0.1 % (0.0-1.5); ABG HCO3 23.3 mmol/L (22.0-26.0); ABG METHEMOGLOBIN 0.3 % (0.0-1.5); ABG OXYGEN CONTENT 14.5 mL/dL (15.0-23.0); ABG OXYGEN SATURATION 90.5 % (95.0-98.0); ABG OXYHEMOGLOBIN 90.1 % (94.0-100.0); ABG PCO2 35 mmHg (35-45); ABG PH 7.432 (7.35-7.450); ABG TOTAL HEMOGLOBIN 11.4 G/dL (12.0-18.0); PO2, ARTERIAL BG 61.4 mmHg (79.0-87.0); SOURCE, BLOOD GAS ARTERIAL; TEMPERATURE, FAHRENHEIT, BG 98.6 FAHREN (96.0-98.6)
[2017-11-30 09:37] LABS: O2 DEVICE,BLOOD GAS VENTILATOR (ROOM AIR); PEEP,BG 5 cm H2O; SITE, BLOOD GAS ARTERIAL LINE; VT, ABG 550 ml
[2017-11-30 12:00] VITALS: BP 163/58
[2017-11-30] MEDS ORDERED: SODIUM CHLORIDE 0.9% 2,000 ML IV ONE (12:26)
[2017-11-30 16:00] VITALS: BP 106/50
[2017-11-30] MEDS: SOD FERRIC GLUC COMPLX/SUCROSE 125 MG in SODIUM CHLORIDE 0.9% 100 ML IV SCH (17:11)
[2017-11-30 20:00] VITALS: BP 157/52
[2017-11-30] MEDS: CloZAPine 100 MG TABLET PO SCH (20:12)
[2017-11-30] MEDS: CALCIUM OYSTER SHELL 500 MG TABLET PO SCH (20:13)
[2017-11-30] MEDS: CloNIDine HCL 0.1 MG TABLET PO PRN (21:55)
[2017-12-01] VITALS (7 sets, daily range): BP systolic 132–181; BP diastolic 48–58
[2017-12-01] MEDS: PROPOFOL 1000 MG/ISO-OSM 100 ML IV PRN ×2 (00:43→19:41)
[2017-12-01] MEDS: PIPERACILLIN SODIUM/TAZOBACTAM 2.25 GM in DEXTROSE 5%-WATER 50 ML IV SCH ×3 (01:57→17:32)
[2017-12-01] MEDS ORDERED: SODIUM CHLORIDE 0.9% 500 ML IV ONE (01:57)
[2017-12-01] MEDS ORDERED: SODIUM CHLORIDE 0.9% 100 ML ONE (02:29)
[2017-12-01] MEDS: CloNIDine HCL 0.1 MG TABLET PO PRN (03:55)
[2017-12-01] MEDS: HYDROCODONE/ACETAMINOPHEN 5-325 MG TABLET PO PRN (04:29)
[2017-12-01 04:50] LABS: CREATININE 3.01 mg/dL (0.60-1.30); MAGNESIUM 1.9 mg/dL (1.80-2.40); PHOSPHORUS 4.7 mg/dL (2.5-4.9); POTASSIUM 3.7 mmol/L (3.5-5.1)
[2017-12-01 04:51] LABS: TOTAL PROTEIN, SERUM 4.8 g/dL (6.4-8.2)
[2017-12-01] MEDS: LEVOTHYROXINE SODIUM 75 MCG TABLET PO SCH (06:17)
[2017-12-01] MEDS: AMINO ACIDS/PROTEIN HYDROLYS 30 ML TUBE PO SCH ×3 (08:00→17:31)
[2017-12-01] MEDS: FLUTICASONE/VILANTEROL 100-25 MCG/INH INHALER [14] IH SCH (09:00)
[2017-12-01] MEDS: DOCUSATE SODIUM 100 MG CAPSULE PO SCH (09:00)
[2017-12-01] MEDS: CHOLECALCIFEROL (VIT D3) 1,000 UNITS TABLET PO SCH (09:27)
[2017-12-01] MEDS: CALCITRIOL 0.25 MCG CAPSULE PO SCH (09:27)
[2017-12-01] MEDS: BENZTROPINE MESYLATE 0.5 MG TABLET PO SCH ×2 (09:28→21:42)
[2017-12-01] MEDS: AmLODIPine BESYLATE 10 MG TABLET PO SCH (09:28)
[2017-12-01] MEDS: HydrALAZINE HCL 25 MG TABLET PO SCH ×4 (09:29→23:25)
[2017-12-01] MEDS: GABAPENTIN 300 MG CAPSULE PO SCH ×3 (09:29→21:30)
[2017-12-01] MEDS: BUMETANIDE 0.25 MG/ML 4 ML VIAL IVP SCH ×3 (09:30→23:28)
[2017-12-01] MEDS: ALBUTEROL SULFATE 2.5 MG/0.5 ML NEB SOLUTION NEB PRN ×2 (09:34→15:51)
[2017-12-01] MEDS: IPRATROPIUM BROMIDE 0.5 MG/2.5 ML NEB SOLUTION NEB PRN ×2 (09:34→15:51)
[2017-12-01] MEDS: ACETYLCYSTEINE 20% 200 MG/ML 4 ML NEB SOLUTION NEB SCH ×3 (09:34→20:05)
[2017-12-01 13:14] LABS: ABG A-A DIFF O2 221.5 mmHg (10-20.0); ABG BASE EXCESS 0.6 mmol/L (-2.0-3.0); ABG CARBOXYHEMOGLOBIN 0.8 % (0.0-1.5); ABG HCO3 25.2 mmol/L (22.0-26.0); ABG METHEMOGLOBIN 0.3 % (0.0-1.5); ABG OXYGEN CONTENT 12.4 mL/dL (15.0-23.0); ABG OXYGEN SATURATION 91.2 % (95.0-98.0); ABG OXYHEMOGLOBIN 90.2 % (94.0-100.0); ABG PCO2 33 mmHg (35-45); ABG PH 7.486 (7.35-7.450); ABG TOTAL HEMOGLOBIN 9.7 G/dL (12.0-18.0); PO2, ARTERIAL BG 62.4 mmHg (79.0-87.0); SITE, BLOOD GAS ARTERIAL LINE; SOURCE, BLOOD GAS ARTERIAL; TEMPERATURE, FAHRENHEIT, BG 98.6 FAHREN (96.0-98.6)
[2017-12-01 13:15] LABS: O2 DEVICE,BLOOD GAS VENTILATOR (ROOM AIR); PEEP,BG 5 cm H2O; VT, ABG 550 ml
[2017-12-01 15:55] LABS: SPECIMENTYPE,BODY FLUID PLEURAL
[2017-12-01 17:37] LABS: APPEARANCE,UNSPUN,BODY FLUID SLIGHTLY CLOUDY (CLEAR)
[2017-12-01] MEDS: SOD FERRIC GLUC COMPLX/SUCROSE 125 MG in SODIUM CHLORIDE 0.9% 100 ML IV SCH (17:41)
[2017-12-01 17:42] LABS: COLOR,BODY FLUID YELLOW (LT YELLOW); TOTAL VOLUME,BODY FLUID 450 mL; WBC, BODY FLUID 27 /cu. mm.
[2017-12-01 17:46] LABS: APPEARANCE,SPUN,BODY FLUID CLEAR (CLEAR)
[2017-12-01 17:47] LABS: BASOPHILS,BODY FLUID 0 %; EOSINOPHILS,BF (ANAL) 0 %; LYMPHOCYTES,BODY FLUID 77 %; MONOCYTES,BODY FLUID 7 %; NEUTROPHILS,BODY FLUID 9 %
[2017-12-01 17:49] LABS: PH, BODY FLUID 7
[2017-12-01] MEDS: CALCIUM OYSTER SHELL 500 MG TABLET PO SCH (21:30)
[2017-12-01] MEDS: CloZAPine 100 MG TABLET PO SCH (21:31)
[2017-12-02] VITALS: BP 159/55
[2017-12-02] MEDS: PIPERACILLIN SODIUM/TAZOBACTAM 2.25 GM in DEXTROSE 5%-WATER 50 ML IV SCH ×3 (02:13→17:36)
[2017-12-02] MEDS ORDERED: SODIUM CHLORIDE 0.9% 500 ML IV ONE (02:16)
[2017-12-02] MEDS: PROPOFOL 1000 MG/ISO-OSM 100 ML IV PRN ×3 (02:35→19:52)
[2017-12-02 04:00] VITALS: BP 174/60
[2017-12-02 04:38] LABS: HEMATOCRIT 29.2 % (41-53); HEMOGLOBIN 9.9 g/dL (13.5-17.5); MEAN CORPUSCULAR HEMOGLOBIN 32.2 pg (26.0-34.0); MEAN CORPUSCULAR HGB CONC 33.9 G/dL (31.0-37.0); MEAN CORPUSCULAR VOLUME 95 fL (80-100); PLATELET COUNT (AUTO) 197 K/uL (150-450); RED BLOOD CELL COUNT(AUTO) 3.07 MIL/uL (4.50-5.90); RED CELL DISTRIBUTION WIDTH 18.3 % (11.5-14.5)
[2017-12-02 04:56] LABS: CALCIUM, TOTAL 8.2 mg/dL (8.8-10.5); CREATININE 3.91 mg/dL (0.60-1.30); MAGNESIUM 2.1 mg/dL (1.80-2.40); PHOSPHORUS 5.2 mg/dL (2.5-4.9); POTASSIUM 3.3 mmol/L (3.5-5.1)
[2017-12-02 05:17] LABS: BAND NEUTROPHILS % (MANUAL) 4 % (0-5); EOSINOPHILS % (MANUAL) 1 % (1-6); LYMPHOCYTES % (MANUAL) 16 % (22-44); METAMYELOCYTES % 1 % (0-0); MONOCYTES % (MANUAL) 1 % (2-9); SEGMENTED NEUTROPHILS % 77 % (40-70)
[2017-12-02] MEDS: LEVOTHYROXINE SODIUM 75 MCG TABLET PO SCH (06:17)
[2017-12-02] MEDS ORDERED: SODIUM CHLORIDE 0.9% 2,000 ML IV ONE (07:09)
[2017-12-02] MEDS: ALBUTEROL SULFATE 2.5 MG/0.5 ML NEB SOLUTION NEB PRN ×3 (07:46→21:17)
[2017-12-02] MEDS: ACETYLCYSTEINE 20% 200 MG/ML 4 ML NEB SOLUTION NEB SCH ×3 (07:46→21:17)
[2017-12-02 08:00] VITALS: BP 140/57
[2017-12-02 08:40] LABS: ABG METHEMOGLOBIN 0.3 % (0.0-1.5); TEMPERATURE, FAHRENHEIT, BG 98.6 FAHREN (96.0-98.6)
[2017-12-02 08:42] LABS: ABG A-A DIFF O2 204.6 mmHg (10-20.0); ABG CARBOXYHEMOGLOBIN 0.3 % (0.0-1.5); ABG OXYGEN CONTENT 14.1 mL/dL (15.0-23.0); ABG OXYGEN SATURATION 94.5 % (95.0-98.0); ABG OXYHEMOGLOBIN 93.9 % (94.0-100.0); ABG PCO2 32 mmHg (35-45); ABG PH 7.468 (7.35-7.450); ABG TOTAL HEMOGLOBIN 10.6 G/dL (12.0-18.0); PO2, ARTERIAL BG 79.9 mmHg (79.0-87.0)
[2017-12-02 08:47] LABS: O2 DEVICE,BLOOD GAS VENTILATOR (ROOM AIR); PEEP,BG 5 cm H2O; SITE, BLOOD GAS ARTERIAL LINE; SOURCE, BLOOD GAS ARTERIAL; VT, ABG 550 ml
[2017-12-02] MEDS: DOCUSATE SODIUM 100 MG CAPSULE PO SCH (09:00)
[2017-12-02] MEDS: FLUTICASONE/VILANTEROL 100-25 MCG/INH INHALER [14] IH SCH (09:00)
[2017-12-02] MEDS: BUMETANIDE 0.25 MG/ML 4 ML VIAL IVP SCH ×3 (09:19→23:55)
[2017-12-02] MEDS: CALCITRIOL 0.25 MCG CAPSULE PO SCH (09:19)
[2017-12-02] MEDS: BENZTROPINE MESYLATE 0.5 MG TABLET PO SCH ×2 (09:20→21:49)
[2017-12-02] MEDS: GABAPENTIN 300 MG CAPSULE PO SCH ×3 (09:20→21:49)
[2017-12-02] MEDS: AMINO ACIDS/PROTEIN HYDROLYS 30 ML TUBE PO SCH ×3 (09:20→17:37)
[2017-12-02] MEDS: CHOLECALCIFEROL (VIT D3) 1,000 UNITS TABLET PO SCH (09:20)
[2017-12-02] MEDS: HydrALAZINE HCL 25 MG TABLET PO SCH ×4 (09:20→21:49)
[2017-12-02] MEDS: AmLODIPine BESYLATE 10 MG TABLET PO SCH (09:20)
[2017-12-02 12:00] VITALS: BP 181/61
[2017-12-02] MEDS: EPOETIN ALFA 10,000 UNITS/ML VIAL SQ SCH (12:15)
[2017-12-02 16:00] VITALS: BP 102/46
[2017-12-02] MEDS: SOD FERRIC GLUC COMPLX/SUCROSE 125 MG in SODIUM CHLORIDE 0.9% 100 ML IV SCH (17:36)
[2017-12-02] MEDS ORDERED: HEPARIN SODIUM,PORCINE 1,000 UNITS/ML VIAL IVP ONE (18:04)
[2017-12-02 20:00] VITALS: BP 147/55
[2017-12-02] MEDS: IPRATROPIUM BROMIDE 0.5 MG/2.5 ML NEB SOLUTION NEB PRN (21:17)
[2017-12-02] MEDS: CALCIUM OYSTER SHELL 500 MG TABLET PO SCH (21:49)
[2017-12-02] MEDS: CloZAPine 100 MG TABLET PO SCH (21:50)
[2017-12-03] VITALS (7 sets, daily range): BP systolic 133–159; BP diastolic 48–61
[2017-12-03] MEDS: PIPERACILLIN SODIUM/TAZOBACTAM 2.25 GM in DEXTROSE 5%-WATER 50 ML IV SCH ×3 (02:45→17:26)
[2017-12-03] MEDS: PROPOFOL 1000 MG/ISO-OSM 100 ML IV PRN ×4 (04:03→23:48)
[2017-12-03] MEDS ORDERED: SODIUM CHLORIDE 0.9% 250 ML IV ONE (05:23)
[2017-12-03 05:25] LABS: CALCIUM, TOTAL 8.6 mg/dL (8.8-10.5); CREATININE 3.16 mg/dL (0.60-1.30); PHOSPHORUS 4.2 mg/dL (2.5-4.9); POTASSIUM 3.2 mmol/L (3.5-5.1)
[2017-12-03 05:28] LABS: BASOPHILS % (AUTO) 0.6 % (0.0-2.0); EOSINOPHILS % (AUTO) 2.2 % (1.0-6.0); HEMATOCRIT 28.8 % (41-53); HEMOGLOBIN 9.9 g/dL (13.5-17.5); LYMPHOCYTES % (AUTO) 9.4 % (22.0-44.0); MEAN CORPUSCULAR HEMOGLOBIN 32.7 pg (26.0-34.0); MEAN CORPUSCULAR HGB CONC 34.2 G/dL (31.0-37.0); MEAN CORPUSCULAR VOLUME 96 fL (80-100); MONOCYTES # (AUTO) 1.4 K/uL (0.1-1.0); MONOCYTES % (AUTO) 12.9 % (2.0-9.0); NEUTROPHILS # (AUTO) 8.1 K/uL (1.8-7.7); NEUTROPHILS % (AUTO) 74.9 % (40.0-70.0); PLATELET COUNT (AUTO) 202 K/uL (150-450); RED BLOOD CELL COUNT(AUTO) 3.01 MIL/uL (4.50-5.90)
[2017-12-03] MEDS: LEVOTHYROXINE SODIUM 75 MCG TABLET PO SCH (06:07)
[2017-12-03] MEDS: IPRATROPIUM BROMIDE 0.5 MG/2.5 ML NEB SOLUTION NEB PRN ×2 (07:59→22:18)
[2017-12-03] MEDS: ALBUTEROL SULFATE 2.5 MG/0.5 ML NEB SOLUTION NEB PRN ×3 (07:59→22:18)
[2017-12-03] MEDS: ACETYLCYSTEINE 20% 200 MG/ML 4 ML NEB SOLUTION NEB SCH ×3 (07:59→22:18)
[2017-12-03] MEDS: BUMETANIDE 0.25 MG/ML 4 ML VIAL IVP SCH ×4 (08:00→23:47)
[2017-12-03] MEDS: AMINO ACIDS/PROTEIN HYDROLYS 30 ML TUBE PO SCH ×3 (08:00→17:26)
[2017-12-03] MEDS: HydrALAZINE HCL 25 MG TABLET PO SCH ×5 (08:59→20:10)
[2017-12-03] MEDS: GABAPENTIN 300 MG CAPSULE PO SCH ×4 (09:00→20:10)
[2017-12-03] MEDS: DOCUSATE SODIUM 100 MG CAPSULE PO SCH (09:00)
[2017-12-03] MEDS: FLUTICASONE/VILANTEROL 100-25 MCG/INH INHALER [14] IH SCH (09:00)
[2017-12-03] MEDS: BENZTROPINE MESYLATE 0.5 MG TABLET PO SCH ×2 (09:01→20:10)
[2017-12-03] MEDS: CALCITRIOL 0.25 MCG CAPSULE PO SCH (09:01)
[2017-12-03] MEDS: AmLODIPine BESYLATE 10 MG TABLET PO SCH (09:02)
[2017-12-03] MEDS: CHOLECALCIFEROL (VIT D3) 1,000 UNITS TABLET PO SCH (09:06)
[2017-12-03 09:35] LABS: ABG A-A DIFF O2 210.6 mmHg (10-20.0); ABG BASE EXCESS 2.1 mmol/L (-2.0-3.0); ABG CARBOXYHEMOGLOBIN 0.3 % (0.0-1.5); ABG HCO3 26.6 mmol/L (22.0-26.0); ABG METHEMOGLOBIN 0.3 % (0.0-1.5); ABG OXYGEN CONTENT 15.5 mL/dL (15.0-23.0); ABG OXYGEN SATURATION 93.8 % (95.0-98.0); ABG OXYHEMOGLOBIN 93.2 % (94.0-100.0); ABG PCO2 33 mmHg (35-45); ABG PH 7.501 (7.35-7.450); ABG TOTAL HEMOGLOBIN 11.8 G/dL (12.0-18.0); PO2, ARTERIAL BG 72.6 mmHg (79.0-87.0); SOURCE, BLOOD GAS ARTERIAL; TEMPERATURE, FAHRENHEIT, BG 98.6 FAHREN (96.0-98.6)
[2017-12-03 09:46] LABS: O2 DEVICE,BLOOD GAS VENTILATOR (ROOM AIR); SITE, BLOOD GAS ARTERIAL LINE
[2017-12-03 09:47] LABS: PEEP,BG 5 cm H2O; VT, ABG 550 ml
[2017-12-03] MEDS ORDERED: SODIUM CHLORIDE 0.9% 2,000 ML IV ONE (11:59)
[2017-12-03] MEDS: NOREPINEPHRINE 4 MG/D5%-WATER 250 ML IV PRN (13:22)
[2017-12-03] MEDS: CALCIUM OYSTER SHELL 500 MG TABLET PO SCH (20:10)
[2017-12-03] MEDS: CloZAPine 100 MG TABLET PO SCH (20:10)
[2017-12-03] MEDS: CefTRIAXone SODIUM 2 GM in DEXTROSE 5%-WATER 20 ML IV SCH (23:47)
[2017-12-04] VITALS: BP 152/56
[2017-12-04 04:00] VITALS: BP 148/56
[2017-12-04] MEDS: PROPOFOL 1000 MG/ISO-OSM 100 ML IV PRN ×4 (04:28→19:48)
[2017-12-04] MEDS ORDERED: SODIUM CHLORIDE 0.9% 500 ML IV ONE (04:51)
[2017-12-04 05:26] LABS: BASOPHILS % (AUTO) 0.6 % (0.0-2.0); EOSINOPHILS % (AUTO) 1.8 % (1.0-6.0); HEMOGLOBIN 10.3 g/dL (13.5-17.5); LYMPHOCYTES # (AUTO) 1.2 K/uL (1.0-4.8); LYMPHOCYTES % (AUTO) 10.8 % (22.0-44.0); MEAN CORPUSCULAR HEMOGLOBIN 32.4 pg (26.0-34.0); MEAN CORPUSCULAR HGB CONC 33.3 G/dL (31.0-37.0); MEAN CORPUSCULAR VOLUME 97 fL (80-100); MONOCYTES # (AUTO) 1.3 K/uL (0.1-1.0); MONOCYTES % (AUTO) 11.9 % (2.0-9.0); NEUTROPHILS # (AUTO) 8.4 K/uL (1.8-7.7); NEUTROPHILS % (AUTO) 74.9 % (40.0-70.0); PLATELET COUNT (AUTO) 213 K/uL (150-450); RED BLOOD CELL COUNT(AUTO) 3.19 MIL/uL (4.50-5.90); RED CELL DISTRIBUTION WIDTH 18.9 % (11.5-14.5)
[2017-12-04] MEDS: CloNIDine HCL 0.1 MG TABLET PO PRN (05:34)
[2017-12-04] MEDS: LEVOTHYROXINE SODIUM 75 MCG TABLET PO SCH (05:34)
[2017-12-04 05:40] LABS: ALBUMIN 1.6 g/dL (3.4-5.0); BILIRUBIN,TOTAL 0.3 mg/dL (0.1-1.0); CALCIUM, TOTAL 8.6 mg/dL (8.8-10.5); CREATININE 2.73 mg/dL (0.60-1.30); MAGNESIUM 1.8 mg/dL (1.80-2.40); PHOSPHORUS 3.2 mg/dL (2.5-4.9); POTASSIUM 3.1 mmol/L (3.5-5.1); TOTAL PROTEIN, SERUM 4.9 g/dL (6.4-8.2)
[2017-12-04] MEDS: ALBUTEROL SULFATE 2.5 MG/0.5 ML NEB SOLUTION NEB PRN ×2 (07:53→16:37)
[2017-12-04] MEDS: ACETYLCYSTEINE 20% 200 MG/ML 4 ML NEB SOLUTION NEB SCH ×3 (07:53→21:40)
[2017-12-04 08:00] VITALS: BP 194/67
[2017-12-04] MEDS ORDERED: POTASSIUM CHL 10 MEQ/WATER 50 ML IV ONE (08:00)
[2017-12-04] MEDS: AMINO ACIDS/PROTEIN HYDROLYS 30 ML TUBE PO SCH ×3 (08:02→17:36)
[2017-12-04] MEDS: BUMETANIDE 0.25 MG/ML 4 ML VIAL IVP SCH ×2 (08:12→21:07)
[2017-12-04] MEDS: GABAPENTIN 300 MG CAPSULE PO SCH ×3 (08:13→21:07)
[2017-12-04] MEDS: BENZTROPINE MESYLATE 0.5 MG TABLET PO SCH ×2 (08:13→21:07)
[2017-12-04] MEDS: CALCITRIOL 0.25 MCG CAPSULE PO SCH (08:13)
[2017-12-04] MEDS: CHOLECALCIFEROL (VIT D3) 1,000 UNITS TABLET PO SCH (08:14)
[2017-12-04] MEDS: DOCUSATE SODIUM 100 MG CAPSULE PO SCH (08:15)
[2017-12-04] MEDS: AmLODIPine BESYLATE 10 MG TABLET PO SCH (08:15)
[2017-12-04] MEDS: HydrALAZINE HCL 25 MG TABLET PO SCH ×4 (08:16→21:09)
[2017-12-04] MEDS: FLUTICASONE/VILANTEROL 100-25 MCG/INH INHALER [14] IH SCH (08:17)
[2017-12-04] MEDS: EPOETIN ALFA 10,000 UNITS/ML VIAL SQ SCH (10:08)
[2017-12-04 10:16] LABS: ABG A-A DIFF O2 176.2 mmHg (10-20.0); ABG BASE EXCESS 5.1 mmol/L (-2.0-3.0); ABG CARBOXYHEMOGLOBIN 0.9 % (0.0-1.5); ABG HCO3 28.8 mmol/L (22.0-26.0); ABG METHEMOGLOBIN 0.3 % (0.0-1.5); ABG OXYGEN CONTENT 13.7 mL/dL (15.0-23.0); ABG OXYHEMOGLOBIN 92.9 % (94.0-100.0); ABG PCO2 35 mmHg (35-45); ABG PH 7.516 (7.35-7.450); ABG TOTAL HEMOGLOBIN 10.4 G/dL (12.0-18.0); PO2, ARTERIAL BG 68.8 mmHg (79.0-87.0); SOURCE, BLOOD GAS ARTERIAL; TEMPERATURE, FAHRENHEIT, BG 97.7 FAHREN (96.0-98.6)
[2017-12-04 10:20] LABS: O2 DEVICE,BLOOD GAS VENTILATOR (ROOM AIR); PEEP,BG 5 cm H2O; SITE, BLOOD GAS ARTERIAL LINE; VT, ABG 550 ml
[2017-12-04 12:00] VITALS: BP 132/52
[2017-12-04 16:00] VITALS: BP 161/59
[2017-12-04] MEDS ORDERED: HEPARIN SODIUM,PORCINE 1,000 UNITS/ML VIAL IVP ONE (17:57)
[2017-12-04] MEDS ORDERED: ALBUMIN HUMAN 25%-12.5GM/50ML IV BOTTLE IV ONE (17:57)
[2017-12-04 20:00] VITALS: BP 151/56
[2017-12-04] MEDS: CloZAPine 100 MG TABLET PO SCH (21:08)
[2017-12-04] MEDS: CALCIUM OYSTER SHELL 500 MG TABLET PO SCH (21:08)
[2017-12-05] VITALS: BP 124/50
[2017-12-05] MEDS: CefTRIAXone SODIUM 2 GM in DEXTROSE 5%-WATER 20 ML IV SCH (00:09)
[2017-12-05] MEDS: PROPOFOL 1000 MG/ISO-OSM 100 ML IV PRN ×5 (00:10→17:48)
[2017-12-05 04:00] VITALS: BP 155/52
[2017-12-05 05:39] LABS: BASOPHILS % (AUTO) 0.5 % (0.0-2.0); EOSINOPHILS % (AUTO) 2.2 % (1.0-6.0); HEMATOCRIT 32.5 % (41-53); HEMOGLOBIN 10.7 g/dL (13.5-17.5); LYMPHOCYTES # (AUTO) 0.9 K/uL (1.0-4.8); LYMPHOCYTES % (AUTO) 9.3 % (22.0-44.0); MEAN CORPUSCULAR HEMOGLOBIN 32.4 pg (26.0-34.0); MEAN CORPUSCULAR HGB CONC 33.1 G/dL (31.0-37.0); MEAN CORPUSCULAR VOLUME 98 fL (80-100); MONOCYTES # (AUTO) 0.7 K/uL (0.1-1.0); MONOCYTES % (AUTO) 6.5 % (2.0-9.0); NEUTROPHILS # (AUTO) 8.3 K/uL (1.8-7.7); NEUTROPHILS % (AUTO) 81.5 % (40.0-70.0); PLATELET COUNT (AUTO) 221 K/uL (150-450); RED BLOOD CELL COUNT(AUTO) 3.32 MIL/uL (4.50-5.90); RED CELL DISTRIBUTION WIDTH 20.3 % (11.5-14.5)
[2017-12-05 05:41] LABS: CREATININE 3.6 mg/dL (0.60-1.30); POTASSIUM 3.5 mmol/L (3.5-5.1)
[2017-12-05] MEDS: LEVOTHYROXINE SODIUM 75 MCG TABLET PO SCH (06:11)
[2017-12-05] MEDS: ALBUTEROL SULFATE 2.5 MG/0.5 ML NEB SOLUTION NEB PRN ×2 (07:48→15:22)
[2017-12-05] MEDS: IPRATROPIUM BROMIDE 0.5 MG/2.5 ML NEB SOLUTION NEB PRN ×2 (07:49→15:22)
[2017-12-05] MEDS: ACETYLCYSTEINE 20% 200 MG/ML 4 ML NEB SOLUTION NEB SCH ×2 (07:49→15:22)
[2017-12-05 08:00] VITALS: BP 132/49
[2017-12-05 08:26] LABS: INR 0.9 (0.9-1.1); PROTHROMBIN TIME 9.7 SEC (9.4-11.6)
[2017-12-05] MEDS: HydrALAZINE HCL 25 MG TABLET PO SCH ×3 (09:00→16:00)
[2017-12-05] MEDS: DOCUSATE SODIUM 100 MG CAPSULE PO SCH (09:00)
[2017-12-05] MEDS: BUMETANIDE 0.25 MG/ML 4 ML VIAL IVP SCH (09:00)
[2017-12-05] MEDS: AmLODIPine BESYLATE 10 MG TABLET PO SCH (09:00)
[2017-12-05] MEDS: FLUTICASONE/VILANTEROL 100-25 MCG/INH INHALER [14] IH SCH (09:00)
[2017-12-05] MEDS: AMINO ACIDS/PROTEIN HYDROLYS 30 ML TUBE PO SCH ×3 (09:04→16:30)
[2017-12-05] MEDS: CALCITRIOL 0.25 MCG CAPSULE PO SCH (09:05)
[2017-12-05] MEDS: CHOLECALCIFEROL (VIT D3) 1,000 UNITS TABLET PO SCH (09:05)
[2017-12-05] MEDS: BENZTROPINE MESYLATE 0.5 MG TABLET PO SCH (09:05)
[2017-12-05] MEDS: GABAPENTIN 300 MG CAPSULE PO SCH ×2 (09:06→16:30)
[2017-12-05 12:00] VITALS: BP 108/43
[2017-12-05] MEDS ORDERED: HEPARIN SODIUM,PORCINE 1,000 UNITS/ML 10 ML VIAL ONE (13:02)
[2017-12-05] MEDS ORDERED: LIDOCAINE HCL 1%/EPI 1:200,000/PF 10 ML VIAL ONE (13:02)
[2017-12-05] MEDS ORDERED: HEPARIN SODIUM 1000 UNITS/NS 500 ML ONE (13:02)
[2017-12-05] MEDS ORDERED: SODIUM CHLORIDE 0.9% 250 ML IV ONE (15:28)
[2017-12-05 16:00] VITALS: BP 182/63
[2017-12-05] MEDS ORDERED: HEPARIN SODIUM,PORCINE 1,000 UNITS/ML VIAL IVP ONE (17:35)
[2017-12-05 18:00] VITALS: BP 148/50
[2017-12-05 21:20] LABS: C.DIFF GDH ANTIGEN, Stool Negative (Negative); C.DIFF TOXINS A&B, Stool Negative (Negative)
[2017-12-24] MEDS ORDERED: HALOPERIDOL DECANOATE 100 MG/ML VIAL IM SCH (09:00)
== END 2017-12-05 20:30 | DRG 166 ==
LOC: EMS 12:33 → ICU 16:52 → 5N 11-25 11:05 → ICU 11-26 11:22
PROVIDERS: ADMIT Hospitalist; ATTEND Hospitalist
PROC: 30233N1 Transfusion of Nonautologous Red Blood Cells into Peripheral Vein, Percutaneous Approach (ICD-10-PCS; 2017-11-26)
PROC: 02HV33Z Insertion of Infusion Device into Superior Vena Cava, Percutaneous Approach (ICD-10-PCS; 2017-11-26)
PROC: B548ZZA Ultrasonography of Superior Vena Cava, Guidance (ICD-10-PCS; 2017-11-26)
PROC: 5A1955Z Respiratory Ventilation, Greater than 96 Consecutive Hours (ICD-10-PCS; 2017-11-26)
PROC: 0BH17EZ Insertion of Endotracheal Airway into Trachea, Via Natural or Artificial Opening (ICD-10-PCS; 2017-11-26)
PROC: 0B9F8ZX Drainage of Right Lower Lung Lobe, Via Natural or Artificial Opening Endoscopic, Diagnostic (ICD-10-PCS; principal; 2017-11-28)
PROC: 0W993ZZ Drainage of Right Pleural Cavity, Percutaneous Approach (ICD-10-PCS; 2017-12-01)
PROC: 0JH63XZ Insertion of Tunneled Vascular Access Device into Chest Subcutaneous Tissue and Fascia, Percutaneous Approach (ICD-10-PCS; 2017-12-05)
PROC: 02HV33Z Insertion of Infusion Device into Superior Vena Cava, Percutaneous Approach (ICD-10-PCS; 2017-12-05)
PROC: B5181ZA Fluoroscopy of Superior Vena Cava using Low Osmolar Contrast, Guidance (ICD-10-PCS; 2017-12-05)
PROC: 3E043NZ Introduction of Analgesics, Hypnotics, Sedatives into Central Vein, Percutaneous Approach (ICD-10-PCS; 2017-12-05)
DX: J15.0 Pneumonia due to Klebsiella pneumoniae (principal); J96.01 Acute respiratory failure with hypoxia; E43 Unspecified severe protein-calorie malnutrition; N18.6 End stage renal disease; F20.0 Paranoid schizophrenia; E87.2 Acidosis; I12.0 Hypertensive chronic kidney disease with stage 5 chronic kidney disease or end stage renal disease; J90 Pleural effusion, not elsewhere classified; N25.81 Secondary hyperparathyroidism of renal origin; E83.51 Hypocalcemia; F29 Unspecified psychosis not due to a substance or known physiological condition; G40.909 Epilepsy, unspecified, not intractable, without status epilepticus; F17.210 Nicotine dependence, cigarettes, uncomplicated; K57.90 Diverticulosis of intestine, part unspecified, without perforation or abscess without bleeding; I25.10 Atherosclerotic heart disease of native coronary artery without angina pectoris; E66.01 Morbid (severe) obesity due to excess calories; E87.6 Hypokalemia; D63.1 Anemia in chronic kidney disease; E03.9 Hypothyroidism, unspecified; Z91.19 Patient's noncompliance with other medical treatment and regimen; Z68.30 Body mass index [BMI] 30.0-30.9, adult; Z99.2 Dependence on renal dialysis; Z79.899 Other long term (current) drug therapy
CPT/HCPCS: 31624; 32555; 36245; 36561; 71250; 76937; 76942; 81050; 82306; 82465; 82575; 82784; 82805; 82945; 83540; 83550; 83615; 83735; 83970; 83986; 84100; 84145; 84155; 84156; 84157; 84165; 84166; 84300; 84443; 84540; 86160; 86162; 86334; 86850; 86900; 86901; 86920; 87015; 87070; 87081; 87205; 87206; 87324; 87340; 87449; 88108; 89051; 93005; 93970; 94002; 94003; 94640; 94667; 96374; 96375; 99291; J0610; J0696; J0885; J1644; J2543; J2704; J2916; J3010; J3475; J3480; J3490; J7030; J7040; J7050; J7060; P9016; P9047